=== PATIENT | male | born 1950 | race Caucasian/White ===

== ENCOUNTER 2018-09-04 08:15 | Emergency (ER) | payer OTHER ==
[2018-09-04 08:29] VITALS: BP 153/74
--- NOTE | 2018-09-04 09:08 | UC ---
Head Injury HPI - HPI Summary HPI Summary: PT REPORTS FEELING "OFF" ALL DAY YESTERDAY. SEVERAL FAMILY MEMBERS WITH GASTROENTERITIS. IN THE EVENING DEVELOPED NAUSEA AND VOMITED. SAT IN THE BATHROOM. FELT EXTREMELY DIZZY AND NAUSEOUS. NEXT THING HE KNOWS HE IS WAKING UP ON THE FLOOR OF THE BATHROOM AND IT'S MIDNIGHT. BLOOD ON THE FLOOR. PT DOES NOT RECALL FALLING OR HITTING HIS HEAD. CONTINUED TO FEEL DIZZY AND NAUSEOUS. WENT TO SIT IN HIS CHAIR. THIS MORNING DRANK A GALLON OF WATER AND FELT BETTER. AT TIME OF EXAM PT DENIES MENDOSA, DIZZINESS OR NAUSEA. STATES HE "FEELS PERFECT". CAME TO CHECK OUT THE "SCRATCH" ON HIS HEAD. STATES HE IS UTD TETANUS. - History Of Current Complaint Chief Complaint: UCLaceration Stated Complaint: HEAD INJURY Time Seen by Provider: 09/04/18 08:36 Hx Obtained From: Patient Onset/Duration: Sudden Onset, Lasting Hours, Still Present Severity Currently: Moderate Severity Initially: Mild Pain Intensity: 0 Pain Scale Used: 0-10 Numeric Character: Dull Aggravating Factor(s): Nothing Alleviating Factor(s): Nothing Associated Signs And Symptoms: Positive: LOC Duration Unknown, Nausea, Vomiting. Negative: Confusion, Memory Loss, Epistaxis, Dental Malocclusion, Neck Pain - Allergies/Home Medications Allergies/Adverse Reactions: Allergies Allergy/AdvReac Type Severity Reaction Status Date / Time honey Allergy Unknown Verified 09/04/18 08:29 Reaction Details PMH/Surg Hx/FS Hx/Imm Hx Cardiovascular History: Cardiac Disease, Hypertension - Surgical History Surgical History: None - Family History Known Family History: Positive: Other - CVA (father) - Social History Alcohol Use: None Substance Use Type: None Smoking Status (MU): Former Smoker - Immunization History Most Recent Influenza Vaccination: unknown Most Recent Tetanus Shot: unknown Most Recent Pneumonia Vaccination: unknown Review of Systems All Other Systems Reviewed And Are Negative: Yes Constitutional: Positive: Negative Skin: Positive: Other - laceration Respiratory: Positive: Negative Cardiovascular: Positive: Negative Gastrointestinal: Positive: Vomiting, Nausea Neurological: Positive: Negative Physical Exam Triage Information Reviewed: Yes Appearance: Well-Appearing, No Pain Distress, Well-Nourished Vital Signs: Initial Vital Signs Temp 99.1 F 09/04/18 08:25 Pulse 85 09/04/18 08:25 Resp 18 09/04/18 08:25 BP 153/74 09/04/18 08:25 Pulse Ox 98 09/04/18 08:25 Vital Signs Reviewed: Yes Eyes: Positive: Conjunctiva Clear, Other: - PERRL, EOMI ENT: Positive: Hearing grossly normal, Pharynx normal, TMs normal Neck: Positive: Supple Respiratory Exam: Normal Cardiovascular Exam: Normal Abdomen Description: Positive: Soft Musculoskeletal: Positive: No Edema Neurological: Positive: Alert, Muscle Tone Normal, Other: - CN II-XII GROSSLY INTACT BILATERALLY. RAPID ALTERNATING MOVEMENTS INTACT. NEG PRONATOR DRIFT. 5/5 STRENGTH. HEEL TO ACMILO INTACT BILATERALLY. FINGER TO NOSE INTACT. Psychological: Positive: Age Appropriate Behavior Skin: Positive: Other - 5CM LINEAR LACERATION POSTERIOR SCALP Procedures - Laceration/Wound Repair 1 Location: head Description: Linear Length, Depth and Shape: 5CM LONG, 10MM DEEP, LINEAR Betadine Prep?: No Laceration/Wound Explored: clean, no foreign body removed Closure: Izzy #__ - #4 Diagnostics - Radiology CT HEAD W/O CONTRAST Radiology Interpretation Completed By: Radiologist Summary of Radiographic Findings: UNREMARKABLE - EKG Cardiac Rate: NL - 87BPM Cardiac Rhythm: Sinus: Normal Ectopy: None ST Segment: Normal Head Injury Course/Dx - Course Course Of Treatment: HEAD CT UNREMARKABLE. SCALP LACERATION REPAIRED WITH IZZY. GIVEN UNKNOWN REASON FOR LOC AND HEAD TRAUMA IN PT WITH CARDIAC HISTORY ADVISED TRASFER TO ED FOR FURTHER EVALUATION. PT DECLINES TRANSFER TO ED. ADVISED THAT HE COULD BE RISKING WORSENING OF HIS CONDITION THAT COULD POSE A THREAT TO HIS LIFE, HEALTH AND MEDICAL SAFETY. HE VERBALIZES UNDERSTANDING AND CONTINUES TO DECLINE TRANSFER. - Differential Dx/Diagnosis Provider Diagnosis: Scalp laceration, LOC (loss of consciousness) Discharge - Sign-Out/Discharge Documenting (check all that apply): Patient Departure All imaging exams completed and their final reports reviewed: Yes - Discharge Plan Condition: Stable Disposition: AGAINST MEDICAL ADVICE Patient Education Materials: Laceration (ED), Syncope (ED) Referrals: Jamel Perez MD [Primary Care Provider] - Additional Instructions: YOU HAVE DECLINED TRANSFER TO THE ED TODAY WITH THE UNDERSTANDING THAT YOUR CONDITION MAY WORSEN LEADING TO RESPIRATORY DISTRESS/FAILURE, CARDIAC ARREST, /DISABILITY. OKAY FOR TYLENOL TODAY FOR HEADACHE. STARTING TOMORROW CAN TAKE IBUPROFEN IF NEEDED. GO TO THE ED WITHOUT FAIL IF YOU DEVELOP UNEQUAL PUPILS, VISUAL DISTURBANCE, GAIT INSTABILITY, SPEECH DIFFICULTY, NAUSEA/VOMITING, WORSENING HEADACHE, DIZZINESS, CONFUSION, WEAKNESS OR ANY OTHER CONCERNING SYMPTOMS. SEEK FOLLOW-UP IF YOU DEVELOP SPREADING REDNESS OF THE SKIN, PURULENT DRAINAGE, FEVER, INCREASED PAIN OR ANY OTHER CONCERNING SYMPTOMS. RETURN TO HAVE YOUR 4 IZZY REMOVED IN 10 DAYS - Billing Disposition and Condition Condition: STABLE Disposition: Against Medical Advice
== END 2018-09-04 10:01 | disposition left against medical advice (07) ==
LOC: UCEAST 08:15
DX: S01.01XA Laceration without foreign body of scalp, initial encounter (principal); S06.9X9A Unspecified intracranial injury with loss of consciousness of unspecified duration, initial encounter; X58.XXXA Exposure to other specified factors, initial encounter; Y92.002 Bathroom of unspecified non-institutional (private) residence as the place of occurrence of the external cause; I10 Essential (primary) hypertension; Z87.891 Personal history of nicotine dependence
CPT/HCPCS: 12002; 12032; 70450; 99212; G0463

== ENCOUNTER 2018-09-18 07:26 | Emergency (ER) | payer OTHER ==
[2018-09-18 07:36] VITALS: BP 122/70
--- NOTE | 2018-09-18 07:57 | UC ---
HPI Wound/Suture Re-check - HPI Summary HPI Summary: here for staple removal posterior scalp had a laceration on his scalp 2 weeks ago has ahmet [address] here at [facility] has no complaints today , no pain , no discharge the wound is healing well - History Of Current Complaint Chief Complaint: UCGeneralIllness Stated Complaint: STAPLE REMOVAL Time Seen by Provider: 09/18/18 07:43 Hx Obtained From: Patient Onset/Duration: Sudden Onset, Lasting Weeks - 2, Still Present Surgical Site: posterior scalp Severity: Moderate Pain Intensity: 0 Pain Scale Used: 0-10 Numeric Procedure Type: staple removal Surgery Date: 09/04/18 - Allergies/Home Medications Allergies/Adverse Reactions: Allergies Allergy/AdvReac Type Severity Reaction Status Date / Time honey Allergy Unknown Verified 09/18/18 07:36 Reaction Details PMH/Surg Hx/FS Hx/Imm Hx Cardiovascular History: Cardiac Disease - Surgical History Surgical History: None - Family History Known Family History: Positive: Other - CVA (father) - Social History Alcohol Use: None Substance Use Type: None Smoking Status (MU): Former Smoker - Immunization History Most Recent Influenza Vaccination: unknown Most Recent Tetanus Shot: unknown Most Recent Pneumonia Vaccination: unknown Review of Systems All Other Systems Reviewed And Are Negative: Yes Constitutional: Positive: Negative Eyes: Positive: Negative ENT: Positive: Negative Respiratory: Positive: Negative Is Patient Immunocompromised?: No Physical Exam Triage Information Reviewed: Yes Appearance: Well-Appearing, No Pain Distress, Well-Nourished Vital Signs: Initial Vital Signs Temp 96.7 F 09/18/18 07:32 Pulse 50 09/18/18 07:32 Resp 16 09/18/18 07:32 BP 122/70 09/18/18 07:32 Pulse Ox 100 09/18/18 07:32 Vital Signs Reviewed: Yes Eye Exam: Normal Eyes: Positive: Conjunctiva Clear ENT: Positive: Normal ENT inspection, Hearing grossly normal, Pharynx normal Neck: Positive: Supple, Nontender Respiratory: Positive: Chest non-tender, Lungs clear, Normal breath sounds Cardiovascular: Positive: RRR, No Murmur, Pulses Normal Skin: Positive: Other - laceration posterior scalp , 2 cm , 4 ahmet in placed , wound is clean , dry , healing well ahmet were removed Course/Dx - Diagnosis Provider Diagnosis: Encounter for staple removal Discharge - Sign-Out/Discharge Documenting (check all that apply): Patient Departure All imaging exams completed and their final reports reviewed: No Studies - Discharge Plan Condition: Stable Disposition: HOME Patient Education Materials: Stitches Removal (ED) Referrals: Jamel Perez MD [Primary Care Provider] - If Needed - Billing Disposition and Condition Condition: STABLE Disposition: Home
== END 2018-09-18 07:45 | disposition home or self-care (01) ==
LOC: UCEAST 07:26
DX: S01.01XD Laceration without foreign body of scalp, subsequent encounter (principal); X58.XXXD Exposure to other specified factors, subsequent encounter

== ENCOUNTER 2018-12-16 12:24 | Emergency (ER) | payer OTHER ==
[2018-12-16 12:52] LABS: ABS Basophils 0.1 10^3/ul (0-0.2); ABS Eosinophils 0.3 10^3/ul (0-0.6); ABS Lymphocytes 1.5 10^3/ul (1.0-4.8); ABS Monocytes 0.3 10^3/ul (0-0.8); ABS Neutrophils 3.6 10^3/ul (1.5-7.7); Eosinophil % 4.8 %; Hematocrit 43 % (42-52); Hemoglobin 14.7 g/dL (14.0-18.0); Lymphocyte % 25.2 %; Mean Corpuscular HGB Conc 34 g/dL (31-36); Mean Corpuscular Hemoglobin 30 pg (27-31); Mean Corpuscular Volume 89 fL (80-94); Mean Platelet Volume 7.2 fL (7.4-10.4); Platelet Count 268 10^3/uL (150-450); Red Blood Count 4.85 10^6 /uL (4.18-5.48); Red Cell Distribution Width 14 % (10-15); White Blood Count 5.8 10^3/uL (3.5-10.8)
--- NOTE | 2018-12-16 12:52 | ED ---
HPI Chest Pain - HPI Summary HPI Summary: The patient is a 68 y/o M presenting to [facility] accompanied by with a chief complaint of sudden onset diffuse chest heaviness and discomfort with intermittent episodes starting last night at 1900. He reports that the pain started after working in his garden throughout the day. He states he tried to relax, but the pain persisted. He woke up this morning with a similar sensation but with a duller severity. When the pain is present, it lasts for approximately 5-10 minutes. Currently, he is not having the pain. He additionally c/o dizziness. He denies SOB. He states he has had similar experiences with his pain before, with hx of angina, CAD, HTN, HLD, and cardiac stent placements. No hx of NV. 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 He takes ASA, Metoprolol, and Lipitor, all of which he took today. Former smoker, no EtOH, no substance use. - History of Current Complaint Chief Complaint: EDChestPainROMI Time Seen by Provider: 12/16/18 12:43 Hx Obtained From: Patient Onset/Duration: Started Hours Ago - last night at 1900, Still Present Time of Onset: 19:00 - yesterday Timing: Intermittent, Lasting Minutes - 5-10 minutes Initial Severity: Moderate Current Severity: None Pain Intensity: 0 Pain Scale Used: 0-10 Numeric Chest Pain Location: Diffuse Chest Pain Radiates: No Aggravating Factor(s): Nothing Alleviating Factor(s): Nothing Associated Signs and Symptoms: Positive: Chest Pain, Dizziness. Negative: Shortness of Breath - Allergy/Home Medications Allergies/Adverse Reactions: Allergies Allergy/AdvReac Type Severity Reaction Status Date / Time honey Allergy Unknown Verified 09/18/18 07:36 Reaction Details Home Medications: Home Medications Atorvastatin* [Lipitor*] 80 mg PO DAILY 12/16/18 [History Confirmed 12/16/18] Betamethasone Neeru 0.1% CM(NF) [Valisone 0.1% CM(NF)] 1 applic TOPICAL .BID-TID PRN 12/16/18 [History Confirmed 12/16/18] Spironolactone/HCTZ 25-25 MG* [Aldactazide 25-25*] 1 tab PO DAILY 12/16/18 [ History Confirmed 12/16/18] PMH/Surg Hx/FS Hx/Imm Hx Endocrine/Hematology History: Denies: Hx Diabetes, Hx Thyroid Disease Cardiovascular History: Reports: Hx Angina, Hx Coronary Artery Disease, Hx Hypercholesterolemia, Hx Hypertension Denies: Hx Peripheral Vascular Disease Musculoskeletal History: Denies: Hx Osteoporosis Sensory History: Denies: Hx Glaucoma Opthamlomology History: Denies: Hx Glaucoma Neurological History: Denies: Hx Headaches, Hx Seizures, Hx Transient Ischemic Attacks (TIA) - Surgical History Surgical History: Yes Surgery Procedure, Year, and Place: cardiac stents - Immunization History Date of Tetanus Vaccine: unk Date of Influenza Vaccine: unk Infectious Disease History: No Infectious Disease History: Denies: Traveled Outside the [place] in Last 30 Days - Family History Known Family History: Positive: Cardiac Disease, Other - CVA (father) - Social History Alcohol Use: None Hx Substance Use: No Substance Use Type: Reports: None Hx Tobacco Use: Yes Smoking Status (MU): Former Smoker Do You Chew or Dip Tobacco: No Have You Chewed or Dipped Tobacco in the LAST YEAR: No Have You Smoked in the Last Year: No Review of Systems Positive: Chest Pain - intermittent episodes of pressure, heaviness, and discomfort (no current pain) Negative: Shortness Of Breath Neurological: Other - dizziness All Other Systems Reviewed And Are Negative: Yes Physical Exam - Summary Physical Exam Summary: VITAL SIGNS: Reviewed. GENERAL: Patient is a well-developed and nourished male who is lying comfortable in the stretcher. Patient is not in any acute respiratory distress. HEAD AND FACE: No signs of trauma. No ecchymosis, hematomas or skull depressions. No sinus tenderness. EYES: PERRLA, EOMI x 2, No injected conjunctiva, no nystagmus. EARS: Hearing grossly intact. Ear canals and tympanic membranes are within normal limits. MOUTH: Oropharynx within normal limits. NECK: Supple, trachea is midline, no adenopathy, no JVD, no carotid bruit, no c- spine tenderness, neck with full ROM. CHEST: Symmetric, no tenderness at palpation LUNGS: Clear to auscultation bilaterally. No wheezing or crackles. CVS: Regular rate and rhythm, S1 and S2 present, no murmurs or gallops appreciated. ABDOMEN: Soft, non-tender. No signs of distention. No rebound no guarding, and no masses palpated. Bowel sounds are normal. EXTREMITIES: FROM in all major joints, no edema, no cyanosis or clubbing. NEURO: Alert and oriented x 3. No acute neurological deficits. Speech is normal and follows commands. SKIN: Dry and warm. Triage Information Reviewed: Yes Vital Signs On Initial Exam: Initial Vitals Temp Pulse Resp BP Pulse Ox 99.1 F 78 16 158/87 97 12/16/18 12:28 12/16/18 12:28 12/16/18 12:28 12/16/18 12:28 12/16/18 12:28 Vital Signs Reviewed: Yes Diagnostics - Vital Signs Vital Signs Temp Pulse Resp BP Pulse Ox 12/16/18 12:28 99.1 F 78 16 158/87 97 - Laboratory Result Diagrams: 12/16/18 12:46 12/16/18 12:46 Lab Statement: Any lab studies that have been ordered have been reviewed, and results considered in the medical decision making process. - Radiology CXR Radiology Interpretation Completed By: Radiologist Summary of Radiographic Findings: No active cardiopulmonary disease. ED physician has reviewed this radiology report. - EKG 1231 Cardiac Rate: NL - 78 BPM EKG Rhythm: Sinus Rhythm EKG Comparison: No Significant Change - Similar to EKG taken on 05/02/2016 Summary of EKG Findings: No ST elevations. Re-Evaluation - Re-Evaluation First Eval Re-Evaluation Time: 16:50 Comment: I discussed the results with the patient. He is agreeable for discharge. Chest Pain Course/Dx - Course Assessment/Plan: The patient is a 68 y/o M presenting to [facility] accompanied by with a chief complaint of sudden onset diffuse chest heaviness and discomfort with intermittent episodes starting last night at 1900. He reports that the pain started after working in his garden throughout the day. He states he tried to relax, but the pain persisted. He woke up this morning with a similar sensation but with a duller severity. When the pain is present, it lasts for approximately 5-10 minutes. Currently, he is not having the pain. He additionally c/o dizziness. He denies SOB. He states he has had similar experiences with his pain before, with hx of angina, CAD, HTN, HLD, and cardiac stent placements. No hx of NV. 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 He takes ASA, Metoprolol, and Lipitor, all of which he took today. Former smoker, no EtOH, no substance use. Blood test results without any significant abnormality except for glucose of 154. First troponin is 0.00. EKG is a normal sinus rhythm without ST elevations. Chest x-ray impression: No active Pulmonary disease. Second troponin is 0.00. The heart is 2, therefore, there is a low probability for acute coronary syndrome. Patient has an appointment to see Dr. Waite from cardiology in the next couple days; therefore, I recommended continuing with the appointment. He was recommended to return to the emergency room if he develops any other pain or any other symptoms. He understands and agrees. I discussed all the findings and test results with the patient. Patient was instructed to return to the emergency room immediately if any of the symptoms return worsens. Plan of care was discussed with the patient and understands and agrees. All questions were answered at patient satisfaction. There were no further complaints or concerns. Lung exam before discharge: CTA B/L. Good air exchange. No wheezing or crackles heard. CVS: S1 and S2 present. No murmurs appreciated. Patient is alert and oriented x 3. Patient is hemodynamically stable. Patient will be discharged home with follow up PCP in the next 2-3 days. - Diagnoses Provider Diagnoses: Atypical chest pain Discharge - Sign-Out/Discharge Documenting (check all that apply): Patient Departure - Patient will be discharged home. Patient Received Moderate/Deep Sedation with Procedure: No - Discharge Plan Condition: Stable Disposition: HOME Patient Education Materials: Chest Pain (ED) Referrals: Gene Mancuso MD [Primary Care Provider] - 3 Days Additional Instructions: Follow up with your primary care provider in 2-3 days. RETURN TO THE EMERGENCY DEPARTMENT FOR ANY NEW OR WORSENING SYMPTOMS. - Billing Disposition and Condition Condition: STABLE Disposition: Home - Attestation Statements Document Initiated by Scribe: Yes Documenting Scribe: Umu Fragoso Provider For Whom Katee is Documenting (Include Credential): Dr. Champ Luz MD Scribe Attestation: Umu Shah, scribed for Dr. Champ Luz MD on 12/16/18 at 1655. Scribe Documentation Reviewed: Yes Provider Attestation: The documentation as recorded by the scribe, Umu Fragoso accurately reflects the service I personally performed and the decisions made by me, Dr. Champ Luz MD Status of Renny Document: Ready
[2018-12-16 12:57] LABS: INR 1.06 (0.82-1.09)
[2018-12-16 13:12] LABS: Albumin 4.2 g/dL (3.2-5.2); Albumin/Globulin Ratio 1.3 (1-3); BUN/Creatinine Ratio 15.9 (8-20); Calcium 9.8 mg/dL (8.6-10.3); EGFR African American 78.6 (>60); EGFR Non-African American 64.9 (>60); Globulin 3.3 g/dL (2-4); Potassium 3.6 mmol/L (3.5-5.0); Total Bilirubin 0.5 mg/dL (0.2-1.0); Total Protein 7.5 g/dL (6.4-8.9)
[2018-12-16 13:14] LABS: Activated Partial Thrombo Time 33.3 seconds (26.0-38.0)
[2018-12-16 13:28] LABS: CKMB ng/mL 5.6 ng/mL (0.6-6.3)
[2018-12-16 13:31] LABS: C Reactive Protein 1.6 mg/L (<8.01)
[2018-12-16 17:10] VITALS: BP 148/87
== END 2018-12-16 17:09 | disposition home or self-care (01) ==
LOC: ED 12:24
DX: R07.89 Other chest pain (principal); I10 Essential (primary) hypertension; I25.10 Atherosclerotic heart disease of native coronary artery without angina pectoris; E78.00 Pure hypercholesterolemia, unspecified; Z79.899 Other long term (current) drug therapy; Z87.891 Personal history of nicotine dependence
CPT/HCPCS: 36415; 71046; 80053; 82553; 84484; 85025; 85610; 85730; 86140; 93005; 99283